=== PATIENT | female | born 1970 | race Caucasian/White ===

== ENCOUNTER → 2017-02-15 | Outpatient (CLI) | payer BC ==
[~2017-02-15] MED LIST: ASPI81TA28 PO; BND25CL; CALC500T83 PO; CETI10TA84 PO; CHOL100010 PO; CRAN1TAB PO; ESZO1TAB16 PO; FLUT0.15 NAE; MISCCAP80 PO; TRAZ50TA35 PO
--- NOTE | 2017-02-15 12:45 | DIAGNOSTIC IMAGING REPORT ---
RIGHT KNEE 3 VIEWS CLINICAL HISTORY: RIGHT KNEE PAIN Right pain COMPARISON: None. DISCUSSION: Moderate degenerative narrowing medial joint compartment. Patellofemoral joint compartment is unremarkable. No evidence for fracture or dislocation. Articular surfaces are intact. There is no evidence for soft tissue swelling. IMPRESSION: Moderate degenerative change medial joint compartment. Electronically signed by: Paulo Avila M.D. 02/15/2017 12:43 PM Dictated Date/Time: 02/15/2017 12:43 PM
== END | disposition home or self-care (01) ==
LOC: C.RDSM 12:30
PROVIDERS: ATTEND Family Medicine
DX: M25.561 Pain in right knee (principal); M17.11 Unilateral primary osteoarthritis, right knee

== ENCOUNTER → 2017-07-18 | Outpatient (CLI) | payer BC ==
[~2017-07-18] MED LIST changes: -BND25CL; +CAPS0.1C6 EXT; +DIPH25CA48
== END | disposition home or self-care (01) ==
LOC: C.PAPS 10:23
PROVIDERS: ATTEND Obstetrics & Gynecology
DX: Z01.419 Encounter for gynecological examination (general) (routine) without abnormal findings (principal)

== ENCOUNTER → 2017-08-09 | Outpatient (CLI) | payer OTHER ==
[~2017-08-09] MED LIST changes: +CYM/30 PO; +GABA-113 PO
[2017-08-09 13:01] LABS: BASO % 0.5 %; BASO ABS # 0.03 K/uL (0-0.2); EOS % 5.4 %; EOS ABS # 0.31 K/uL (0-0.5); HEMATOCRIT 37.1 % (37-47); HEMOGLOBIN 12.3 g/dL (12.0-16.0); IG# 0.01 K/uL (0.00-0.02); LYMPH % 30.3 %; LYMPH ABS # 1.75 K/uL (1.2-3.4); MEAN CELL VOLUME 93.7 fL (80-100); MEAN CORPUSCULAR HEMOGLOBIN 31.1 pg (25-34); MEAN CORPUSCULAR HGB CONC 33.2 g/dl (32-36); MEAN PLATELET VOLUME 10.8 fL (7.4-10.4); MONO ABS # 0.58 K/uL (0.11-0.59); NEUT % 53.6 %; PLATELET COUNT 275 K/uL (130-400); RED CELL DISTRIBUTION WIDTH CV 13.3 % (11.5-14.5); RED CELL DISTRIBUTION WIDTH SD 45.5 fL (36.4-46.3); WHITE BLOOD COUNT 5.78 K/uL (4.8-10.8)
[2017-08-09 13:05] LABS: INR 0.9 (0.9-1.1)
[2017-08-09 16:11] LABS: ALBUMIN 3.6 gm/dl (3.4-5.0); ALT/SGPT 35 U/L (12-78); BLOOD UREA NITROGEN 10 mg/dl (7-18); CALCIUM 9.1 mg/dl (8.5-10.1); CARBON DIOXIDE 29 mmol/L (21-32); CREATININE 0.71 mg/dl (0.60-1.20); GLUCOSE 95 mg/dl (70-99); POTASSIUM 4.2 mmol/L (3.5-5.1); SODIUM 134 mmol/L (136-145)
[2017-08-09 16:14] LABS: ALKALINE PHOSPHATASE 64 U/L (45-117); AST/SGOT 19 U/L (15-37); TOTAL PROTEIN 7.2 gm/dl (6.4-8.2)
== END | disposition home or self-care (01) ==
LOC: C.LAB1850 10:56
PROVIDERS: ATTEND Surgery Plastic and Reconstructive Surgery
DX: R82.99 Other abnormal findings in urine (principal)

== ENCOUNTER → 2017-12-03 | Outpatient (CLI) | payer OTHER ==
[~2017-12-03] MED LIST changes: -CYM/30 PO; -GABA-113 PO
--- NOTE | 2017-12-03 14:02 | DIAGNOSTIC IMAGING REPORT ---
C-SPINE ROUTINE 4 OR 5 VIEWS HISTORY: 47 years-old Female [place]ERV[place] acute cervical spine pain without reported trauma COMPARISON: None available TECHNIQUE: 5 views of the cervical spine FINDINGS: 7 nonrib-bearing cervical type vertebral segments are present. There is moderate intervertebral disc space narrowing at C4-C5 and C6-C7 with mild intervertebral disc space narrowing at C3-C4 and C5-C6. Mild to moderate multilevel endplate spurring. These findings cause at least mild neuroforaminal stenosis on the right at C4-C5, C5-C6 and C6-C7. Minimal multilevel facet arthrosis. No acute cervical spine fracture or subluxation. No prevertebral soft tissue swelling. Imaged lung apices appear clear. No opaque foreign body. IMPRESSION: 1. No acute cervical spine fracture or subluxation. 2. Degenerative changes as above. The above report was generated using voice recognition software. It may contain grammatical, syntax or spelling errors. Electronically signed by: Markus Upton M.D. 12/03/2017 2:01 PM Dictated Date/Time: 12/03/2017 1:59 PM
== END | disposition home or self-care (01) ==
LOC: C.RAD 13:31
PROVIDERS: ATTEND Nurse Practitioner Family
DX: M50.10 Cervical disc disorder with radiculopathy, unspecified cervical region (principal)